=== PATIENT | female | born 2000 | race Caucasian/White ===

== ENCOUNTER 2021-10-28 15:58 | Emergency (ER) | payer SELFPAY ==
[2021-10-28 15:59] VITALS: BP 126/86; PULSE 124; RESP 23; TEMP 35.5; O2SAT 92; BMI 25.4
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
[2021-10-28] MEDS: Diphth,Pertuss(Acell),Tet Vac 0.5 ML Vial IM (16:10)
[2021-10-28] MEDS: Ondansetron 4 MG/2 ML Vial IV ×2 (16:11→19:21)
[2021-10-28] MEDS: Morphine 4 MG/ML Syringe IV ×2 (16:11→19:22)
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
[2021-10-28 16:25] LABS: Absolute Lymphocyte Count 2.41 X10^3/uL (0.83-4.51); Absolute Neutrophil Count 2.9 X10^3/uL (2.0-7.7); Basophil# 0.03 X10^3/uL; Basophil% 0.5 % (0-1); Eosinophil# 0.07 X10^3/uL; Eosinophils% 1.2 % (0-5); Hematocrit 37.4 % (37-47); Hemoglobin 12.7 g/dL (12.0-15.0); Lymphocyte # 2.41 X10^3/ul (0.83-4.51); Lymphocyte % 40.8 % (19-41); Mean Corpuscular Hgb 27.9 pg (27.0-32.0); Mean Corpuscular Volume 82.2 fL (81-99); Mean Platelet Vol. 9.9 fl (6.2-12.0); Monocyte# 0.44 X10^3/uL; Monocyte% 7.4 % (0-10); NRBC Flagged by Analyzer 0 % (0-5); Neutrophil # 2.94 X10^3/uL (2.7-7.7); Neutrophil % 49.8 % (47-70); Platelet Count 279 K/mm3 (150-450); RBC Distribution Width CV 12.8 % (11.6-14.6); RBC Distribution Width SD 38.5 fl (35.1-43.9); Red Blood Count 4.55 M/mm3 (4.2-5.4); White Blood Count 5.9 K/mm3 (4.4-11.0)
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
[2021-10-28 16:37] LABS: ALB/GLOB Ratio 1.1 RATIO (0.9-2.4); AST(SGOT) 18 U/L (15-37); Alanine Aminotransfer ALT/SGPT 19 U/L (13-56); Albumin, Serum 4.1 g/dL (3.2-5.0); Alkaline Phosphatase 29 U/L (45-117); Anion Gap 13 (5-15); BUN 14 mg/dL (7-18); BUN/Creat Ratio 14.8 RATIO (10-20); Calcium,Total 9.4 mg/dL (8.5-10.1); Chloride 106 mmol/L (98-107); Creatinine, Serum 0.94 mg/dL (0.55-1.02); EST Glomerular Filtration Rate 78 mL/min (>60); Est Glom Filt Rate - Afr Amer 94 mL/min (>60); Estimated Creatinine Clearance 83.76 ml/min; Globulin 3.6 g/dL (2.2-4.2); Glucose 118 mg/dL (74-106); Lipase 41 U/L (73-393); Potassium 2.8 mmol/L (3.5-5.1); Protein, Total 7.7 g/dL (6.4-8.2); Sodium Level 138 mmol/L (136-145); Troponin-I HS < 3 pg/mL (3.0-54.0)
[2021-10-28] MEDS: Lidocaine/Epi/Tetracaine 50 ML 1 APPLIC TOPICAL (16:40)
[2021-10-28 17:04] VITALS: BP 132/101; PULSE 80; RESP 22; O2SAT 100
[2021-10-28 17:14] LABS: Bacteria 0 SEEN /hpf (None Seen); Mucous, Urine 0 SEEN /hpf (<or=2+); White Blood Cells 0 SEEN /hpf (0-5)
[2021-10-28 17:31] LABS: Internal QC Validated? YES +Cl - CLEAR BKGD
[2021-10-28 17:32] LABS: Pregnancy, Serum, hCG Quali. NEGATIVE Negative
[2021-10-28] MEDS: Lidocaine 1% (20 ml mdv) 20 ML Vial INFILT (17:34)
[2021-10-28 17:35] LABS: Color, Urine Yellow (Yellow); Glucose, Dipstick Normal (Normal); Ketone-Dipstick 15 mg/dl (Negative); Leukocyte Esterase-Dipstick Negative /ul (Negative); Nitrite-Dipstick Negative (Negative); Occult Blood-Urine 250 /ul (Negative); Protein-Dipstick Negative (Negative); Specific Gravity, Urine 1.005 (1.002-1.030); Urine Bilirubin Dipstick Negative (Negative); Urine Clarity Sl. Cloudy (Clear); Urine Urobilinogen Normal (Normal)
[2021-10-28 17:38] LABS: Amphetamine Urine VISTA NEGATIVE (<1000 ng/mL); Barbiturate Urine VISTA NEGATIVE (< 200 ng/mL); Benzodiazepine Urine VISTA NEGATIVE (< 200 ng/mL); Cocaine Urine VISTA NEGATIVE (< 300 ng/mL); Ecstacy Urine VISTA NEGATIVE (< 500 ng/mL); Methadone Urine VISTA NEGATIVE (< 300 ng/mL); PCP Urine VISTA NEGATIVE (< 25 ng/mL); THC Urine VISTA POSITIVE (< 50 ng/mL); Vista UDS pH Range 6
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
[2021-10-28 18:08] LABS: Red Blood Cells-Urine 10-25 SEEN /hpf (0-5); Squamous Epithelial Cells - UA 0-5 SEEN /hpf (5-10)
[2021-10-28 18:30] VITALS: BP 120/90; PULSE 69; RESP 18; O2SAT 100
[2021-10-28 19:40] VITALS: BP 115/77; PULSE 69; RESP 17; O2SAT 100
--- NOTE | 2021-11-02 15:21 | ED.RN ---
PT CALLS ED REPORTS CONCERN THAT SHE IS NOT ABLE TO FOLLOW UP WITH FACIAL SURGEON FOR ONE MONTH. PT ENCOURAGED TO KEEP SCHEDULED APPOINTMENT, AND CALL BACK TO OFFICE TO SEE IF FOLLOW UP CAN BE SCHEDULED SOONER. PT ALSO HAS FOLLOW UP WITH PCP THIS WEEK. ENCOURAGED TO FOLLOW UP WITH PCP AND KEEP HER SCHEDULED APPOINTMENT WITH PCP. PT ENCOURAGED TO RETURN TO ED IS DEVELOPS NEW OR WORSENED SX.
== END 2021-10-28 20:37 | disposition home or self-care (01) ==
PROVIDERS: Emergency Provider Emergency Medicine; PCP Family Medicine; Visit Provider Emergency Medicine
DX: S01.81XA Laceration without foreign body of other part of head, initial encounter (principal); S02.40CA Maxillary fracture, right side, initial encounter for closed fracture; S93.401A Sprain of unspecified ligament of right ankle, initial encounter; S06.0X0A Concussion without loss of consciousness, initial encounter; V43.52XA Car driver injured in collision with other type car in traffic accident, initial encounter; F17.210 Nicotine dependence, cigarettes, uncomplicated; Z23 Encounter for immunization
CPT/HCPCS: 12011; 70450; 70486; 71260; 72125; 73610; 74177; 80053; 80307; 81001; 82077; 83690; 84484; 84703; 85025; 90471; 90715; 96374; 96375; 96376; 99285; P9612; Q9967; A4216; J2405